=== PATIENT | male | born 1985 | race Caucasian/White ===

== ENCOUNTER 2019-03-21 20:46 | Emergency (ER) | payer BC ==
[~2019-03-21] VITALS: Ht 182.9 cm; Wt 95.1 kg
[2019-03-21 20:49] VITALS: Ht 182.9 cm; Wt 95.1 kg
[2019-03-21] MEDS ORDERED: KETOROLAC 30 MG INJ IM STA (20:59)
[2019-03-21] MEDS ORDERED: OXYCODONE/ACETAMINOPHEN (5/325) TAB PO ONE (21:00)
[2019-03-21] MEDS ORDERED: IBUP-1542 PO (21:43)
--- NOTE | 2019-03-21 22:03 | ERD ---
ER Documentation Chief Complaint Chief Complaint R SHOULDER PAIN S/P HOCKEY INJURY HPI This is a 33-year-old man complaining of right shoulder pain after falling onto his right side while playing hockey. Patient does have pain with movement but denies redness or swelling, he does recall the entire episode denies head or neck injury. Patient denies paresis or paresthesias. ROS All systems reviewed and are negative except as per history of present illness. Medications Home Meds Active Scripts Ibuprofen* (Motrin*) 600 Mg Tab, 600 MG PO Q8 PRN for PAIN AND/OR INFLAMMATION, #60 TAB Prov:GUICHO AYALA MD 03/21/19 Allergies Allergies: Coded Allergies: No Known Allergy (Unverified , 03/21/19) PMhx/Soc Medical and Surgical Hx: pt denies Medical Hx, pt denies Surgical Hx Hx Alcohol Use: No Hx Substance Use: Yes (MARIJUANA) Hx Tobacco Use: No Smoking Status: Never smoker FmHx Family History: No diabetes Physical Exam Vitals Vital Signs Date Temp Pulse Resp B/P (MAP) Pulse Ox O2 O2 Flow FiO2 Time Delivery Rate 03/21/19 98.8 71 18 124/70 96 20:49 (88) Physical Exam GENERAL: Well-developed, well-nourished, well-hydrated, mild discomfort, looks nontoxic in appearance \NEURO: Alert and oriented 3, cranial nerves II through XII intact bilaterally, pupils equal round reactive to light, no focal deficits or facial asymmetry, sensation intact distally Strength 5/5 in upper and lower extremities bi laterally CARDIAC: Regular rate and rhythm, no murmurs rubs or gallops LUNGS: Clear bilaterally no wheezing crackles or stridor SKIN: Warm and dry to touch, no abrasions, contusions, or hematomas, no lacerations, no ecchymosis, no target lesions, and without ulcers EXTREMITIES: No clubbing cyanosis or edema, calves are bilaterally symmetrical, no Homans sign, no popliteal cord sign. Distal pulses equal and bilateral. Sensation to the median, radial, ulnar, axillary nerves are intact and equal bilaterally. Patient has mild soft tissue tenderness to touch over the right lateral shoulder although no bony deformity or bony tenderness, no ecchymosis hematomas, or contusions Results 24 hrs Current Medications Medications Dose Sig/Giovani Start Time Status Last (Trade) Ordered Route PRN Stop Time Admin Dose Reason Admin Ketorolac 30 mg ONCE STAT 03/21/19 DC 03/21/19 Tromethamine IM 20:59 21:08 (Toradol) 03/21/19 21:01 Oxycodone/ 1 tab ONCE ONCE 03/21/19 DC 03/21/19 Acetaminophen PO 21:00 21:08 (Percocet 03/21/19 21:01 (5/ 325)) Procedures/MDM I administered Toradol 30 mg IM x1 and Percocet 1 tablet p.o. for pain control. One AP view of the chest performed, read by me reveals no acute infiltrates, normal mediastinum, sharp costophrenic and cardiac borders, no air under the diaphragm. Otherwise unremarkable chest x-ray. X-ray right shoulder 3V Interpreted by me: Bones: No fracture Joints: No dislocation Foreign body: None Right upper extremity was splinted with shoulder immobilizer for comfort and supportive measures. Splint Assessment: Neurovascularly intact post splint placement with good fit. I recommended follow-up with PMD and explained to the patient he may require MR imaging of the shoulder if his symptoms continue, rotator cuff injuries and only adequately be diagnosed with MRIs and if his symptoms continue or worsen he will require MRI and orthopedic consultation. Patient feels much better at this time, and vital signs are normal, symptoms have improved. I did give strict instructions to return to the ED if symptoms continue or worsen, patient will otherwise follow-up with primary care physician. Patient understood instructions and agreed to plan. Disclaimer: Inadvertent spelling and grammatical errors are likely due to EHR/dictation software use and do not reflect on the overall quality of patient care. Also, please note that the electronic time recorded on this note does not necessarily reflect the actual time of the patient encounter. Departure Diagnosis: Primary Impression: Sprain of right shoulder Encounter type: initial encounter Shoulder sprain type: unspecified sprain Qualified Codes: S43.401A - Unspecified sprain of right shoulder joint, initial encounter Additional Impression: Rotator cuff tear Rotator cuff tear extent: unspecified tear extent Rotator cuff tear trauma status: traumatic Encounter type: initial encounter Laterality: right Qualified Codes: S46.011A - Strain of muscle(s) and tendon(s) of the rotator cuff of right shoulder, initial encounter Condition: Good Patient Instructions: Rotator Cuff Tear Referrals: NGOZI BURRIS MD,GUICHO ORTA Mar 21, 2019 22:03
[2019-03-21 22:26] VITALS: BP 121/79; PULSE 59; RESP 19
== END 2019-03-21 22:27 | disposition home or self-care (01) ==
LOC: E/R 20:46
DX: S46.011A Strain of muscle(s) and tendon(s) of the rotator cuff of right shoulder, initial encounter (principal); W18.39XA Other fall on same level, initial encounter; Y92.328 Other athletic field as the place of occurrence of the external cause
CPT/HCPCS: 29105; 71045; 73030; 96372; 99284; J1885